=== PATIENT | male | born 1995 | race Caucasian/White ===

== ENCOUNTER 2020-05-16 17:03 | Emergency (ER) | payer BC, OTHER ==
--- NOTE | 2020-05-16 17:42 | ERPHSYRPT ---
- History of Present Illness Time Seen by Provider: 05/16/20 17:20 Source: patient Exam Limitations: no limitations Patient Subjective Stated Complaint: R ankle pain Triage Nursing Assessment: pt to ED c/o R ankle pain after trip last night at work. states L ankle gave out and tried to catch self on table, and possibly rolled ankle. rates 6/10 pain but was 10/10 when injury occured. RICE done at home with some relief. palpable pedal pulses. noted swelling and mild bruising. cap refil <3 sec. ambulatory to room with limp. Physician History: Patient is a 25-year-old male presents to our ED with complaints of lateral ankle pain. 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 Injury occurred last night. Pain described as an ache that is well localized. No radiation. Pain worse with weightbearing pain improved with rest. No other injury sustained. Patient denies knee pain no hip pain no ankle pain. No BHT or LOC. C-spine cleared clinically. Symptoms are mild to moderate in intensity. Patient declined pain medication. Patient just wants a x-ray. Patient voices no other complaints at this time. Method of Injury: twisted Occurred: yesterday Quality: constant Severity of Pain-Max: moderate Severity of Pain-Current: mild Lower Extremities Pain: ankle: right Modifying Factors: Improves With: movement Associated Symptoms: none Allergies/Adverse Reactions: No Known Drug Allergies Allergy (Verified 05/16/20 17:24) Home Medications: No Home Meds [No Home Meds] 0 mg PO DAILY 12/03/11 [History] Hx Tetanus, Diphtheria Vaccination/Date Given: Yes Hx Influenza Vaccination/Date Given: Yes Hx Pneumococcal Vaccination/Date Given: No Immunizations Up to Date: Yes Travel Risk - International Travel Have you traveled outside of the country in past 3 weeks: No - Coronavirus Screening Are you exhibiting any of the following symptoms?: No Close contact with a COVID-19 positive Pt in past 14-21 Days: No - Review of Systems Constitutional: No Symptoms, No Fever, No Chills Eyes: No Symptoms Ears, Nose, & Throat: No Symptoms Respiratory: No Symptoms, No Cough, No Dyspnea Cardiac: No Symptoms, No Chest Pain, No Edema, No Syncope Abdominal/Gastrointestinal: No Symptoms, No Abdominal Pain, No Nausea, No Vomiting, No Diarrhea Genitourinary Symptoms: No Symptoms, No Dysuria Musculoskeletal: No Symptoms, No Back Pain, No Neck Pain Skin: No Symptoms, No Rash Neurological: No Symptoms, No Dizziness, No Focal Weakness, No Sensory Changes Psychological: No Symptoms Endocrine: No Symptoms Hematologic/Lymphatic: No Symptoms Immunological/Allergic: No Symptoms All Other Systems: Reviewed and Negative - Past Medical History Pertinent Past Medical History: No - Past Surgical History Past Surgical History: Yes Neuro Surgical History: No Pertinent History Cardiac: No Pertinent History Respiratory: No Pertinent History Gastrointestinal: No Pertinent History Genitourinary: No Pertinent History Musculoskeletal: No Pertinent History, Other Male Surgical History: No Pertinent History Other Surgical History: LEFT ELBOW MRSA I&D - Social History Smoking Status: Never smoker Exposure to second hand smoke: No Drug Use: none Patient Lives Alone: No - Nursing Vital Signs Nursing Vital Signs: Initial Vital Signs Temperature 98.4 F 05/16/20 17:15 Pulse Rate 95 H 05/16/20 17:15 Respiratory Rate 18 05/16/20 17:15 Blood Pressure 189/99 05/16/20 17:15 O2 Sat by Pulse Oximetry 97 05/16/20 17:15 Pain Scale Pain Intensity 6 - Physical Exam General Appearance: no apparent distress, alert Eyes, Ears, Nose, Throat Exam: moist mucous membranes Neck Exam: non-tender, supple Cardiovascular/Respiratory Exam: chest non-tender, regular rate/rhythm, no respiratory distress, normal peripheral pulses, No tachycardia, No decreased pulses, No accessory muscle use Gastrointestinal/Abdominal Exam: non-tender, guarding Back Exam: normal inspection, No vertebral tenderness Hips Exam: bilateral: non-tender, normal inspection, normal range of motion, no evidence of injury Legs Exam: bilateral leg: non-tender, normal inspection, normal range of motion, no evidence of injury Knees Exam: bilateral knee: non-tender, normal inspection, normal range of motion, no evidence of injury Ankle Exam: right ankle: limited range of motion, pain, soft tissue tenderness, swelling, left ankle: non-tender, normal inspection, normal range of motion, no evidence of injury Foot Exam: bilateral foot: non-tender, normal inspection, normal range of motion, no evidence of injury Neuro/Tendon Exam: normal sensation, normal motor functions Mental Status Exam: alert, oriented x 3, cooperative Skin Exam: normal color, warm, dry SpO2 Interpretation: normal SpO2: 97 O2 Delivery: Room Air - Course Nursing assessment & vital signs reviewed: Yes - Radiology Exams Ankle X-ray Interpretation: Interpreted by me (NO fractures or dislocations) Ordered Tests: Active Orders 24 hr Category Date Time Status ANKLE (3 VIEWS) Stat Exams 05/16/20 17:33 Taken Medication Summary Generic Name Dose Route Start Last Admin Trade Name Jonnathan PRN Reason Stop Dose Admin Ketorolac Tromethamine 60 mg 05/16/20 18:10 Toradol 30 Mg Injection IM 05/16/20 18:11 STAT ONE - Progress Progress: improved Progress Note: 05/16/20 18:12 Patient reassessed. He initially declined pain medication but later requested. Patient received Toradol IM. Patient requesting the same for home. No obvious fractures or dislocations observed on the x-ray. Official read pending. Patient declined crutches. Patient states he will not use them if issued. Patient voices no other complaints concerns at this time. Patient agrees to follow-up with his primary care doctor within 48 hours for reevaluation. Counseled pt/family regarding: diagnosis, need for follow-up, rad results - Departure Departure Disposition: Home Clinical Impression: Ankle sprain Condition: Stable Critical Care Time: No Referrals: CONNIE TORRES [ACTIVE STAFF] - Additional Instructions: Discharge/Care Plan MIRLANDE MUNOZ was seen on 05/16/20 in the Emergency Room. The patient was counseled regarding Diagnosis,Lab results, Imaging studies, need for follow up and when to return to the Emergency Room. Prescriptions given: Discharge Note I have spoken with the patient and/or caregivers. I have explained the patient's condition, diagnosis and treatment plan based on the information available to me at this time. I have answered the patient's and/or caregiver's questions and addressed any concerns. The patient and/or caregivers have as good understanding of the patient's diagnosis, condition and treatment plan as can be expected at this point. The vital signs have been stable. The patient's condition is stable and appropriate for discharge from the emergency department. The patient will pursue further outpatient evaluation with the primary care physician or other designated or consulting physician as outlined in the discharge instructions. The patient and/or caregivers are agreeable to this plan of care and follow-up instructions have been explained in detail. The patient and/or caregivers have received these instruction. The patient/and or caregivers are aware that any significant change in condition or worsening of symptoms should prompt an immediate return to this or the closest emergency department or call 911. Prescriptions: Ketorolac Tromethamine [Toradol] 10 mg PO TID 5 Days #15 tablet
[2020-05-16] MEDS ORDERED: TORAdol 30 mg Injection IM ONE (18:10)
[2020-05-16 18:12] VITALS: BP 135/84; PULSE 89
[2020-05-16] MEDS ORDERED: TORAdol 30 mg Injection ONE (18:13)
[2020-05-16 18:14] VITALS: O2SAT 97
--- NOTE | 2020-05-17 08:40 | XRAY ---
Indication: Pain following twisting injury. Comparison: None Portable 3 view right ankle demonstrates anterior lateral soft tissue swelling, tiny posterior heel spur, and cuboid accessory ossicle. No other bony, articular, or soft tissue abnormalities.
== END 2020-05-16 18:50 | disposition home or self-care (01) ==
LOC: ED 17:03
DX: S93.401A Sprain of unspecified ligament of right ankle, initial encounter (principal)
CPT/HCPCS: 73610; 96372; 99284; J1885